=== PATIENT | male | born 1970 | race African-American/Black ===

== ENCOUNTER 2019-02-25 15:29 | Emergency (ER) | payer MEDICAID ==
[~2019-02-25] VITALS: Ht 190.5 cm; Wt 95.0 kg
[2019-02-25 20:40] VITALS: BP 119/81
== END 2019-02-25 20:42 | disposition home or self-care (01) ==
LOC: ER 15:29
DX: S82.491A Other fracture of shaft of right fibula, initial encounter for closed fracture (principal); W01.0XXA Fall on same level from slipping, tripping and stumbling without subsequent striking against object, initial encounter; Y93.89 Activity, other specified; Y92.480 Sidewalk as the place of occurrence of the external cause; F12.90 Cannabis use, unspecified, uncomplicated; Z72.0 Tobacco use
CPT/HCPCS: 29515; 73590; 73610; 73630; 99283; Z7610; A4565

== ENCOUNTER 2024-02-28 11:51 | Emergency (ER) | payer MEDICAID ==
[~2024-02-28] VITALS: Ht 180.3 cm; Wt 81.0 kg
[2024-02-28 12:05] VITALS: TEMP 98.1; O2SAT 97
[2024-02-28] MEDS: HYDROCODONE/ACETAMINOPHEN 5/325MG TABLET PO ONE (13:14)
[2024-02-28] MEDS: IBUPROFEN 800MG TABLET PO SCH (13:15)
[2024-02-28] MEDS: IBUPROFEN 800MG TABLET PO ONE (13:15)
[2024-02-28] MEDS ORDERED: IBUP-1525 MT (15:35)
[2024-02-28] MEDS ORDERED: TOPUD MT (15:35)
[2024-02-28] MEDS ORDERED: P50 MT (15:35)
[2024-02-28 15:36] VITALS: BP 130/80; PULSE 70; RESP 15
== END 2024-02-28 15:38 | disposition home or self-care (01) ==
LOC: ER 11:51
DX: M54.30 Sciatica, unspecified side (principal); F12.10 Cannabis abuse, uncomplicated
CPT/HCPCS: 72100; 73502; 99284